=== PATIENT | male | born 1995 | race Caucasian/White ===

== ENCOUNTER 2023-10-03 00:02 | Emergency (ER) | payer MEDICAID, SELFPAY ==
[2023-10-03 00:08] VITALS: BP 144/110; PULSE 126; TEMP 36.7; O2SAT 96; BMI 32.3
[2023-10-03 01:41] LABS: Basophils Absolute Auto 0.1 10^3/uL (0.0-0.1); Basophils Percent Auto 0.6 % (0.2-2.0); Eosinophils Absolute Auto 0.1 10^3/uL (0.0-0.7); Eosinophils Percent Auto 0.8 % (0.9-7.0); Hematocrit 44.8 % (42.0-54.0); Hemoglobin 15.5 g/dL (14.0-18.0); Immature Granulocytes Abs Auto 0.02 10^3/uL (0.00-0.03); Immature Granulocytes Pct Auto 0.2 % (0.0-0.5); Lymphocytes Absolute Auto 1.5 10^3/uL (1.2-3.8); Lymphocytes Percent Auto 16.7 % (20.5-60.0); Mean Corpuscular HGB Conc 34.6 g/dL (29.9-35.2); Mean Corpuscular Hemoglobin 30.8 pg (25.9-34.0); Mean Corpuscular Volume 89.1 fL (80.0-94.0); Mean Platelet Volume 10.4 fL (9.5-13.5); Monocytes Absolute Auto 0.5 10^3/uL (0.3-0.8); Monocytes Percent Auto 5.2 % (1.7-12.0); Neutrophils Absolute Auto 6.8 10^3/uL (1.4-6.5); Neutrophils Percent Auto 76.5 % (43.0-75.0); Platelet Count 261 10^3/uL (150-450); Red Blood Count 5.03 10^6/uL (4.70-6.10); Red Cell Distribution Width 12.2 % (11.0-15.0); White Blood Count 8.9 10^3/uL (4.0-11.0)
[2023-10-03 01:52] LABS: Cannabinoid Screen Urine POSITIVE (NEGATIVE)
[2023-10-03 01:53] LABS: Amphetamine Screen Urine POSITIVE (NEGATIVE); Barbiturates Screen Urine NEGATIVE (NEGATIVE); Benzodiazepines Screen Urine NEGATIVE (NEGATIVE); Buprenorphine Screen Urine NEGATIVE (NEGATIVE); Cocaine Screen Urine NEGATIVE (NEGATIVE); Methadone Screen Urine NEGATIVE (NEGATIVE); Methamphetamines Screen Urine NEGATIVE (NEGATIVE); Opiate Screen Urine NEGATIVE (NEGATIVE); Oxycodone Screen Urine NEGATIVE (NEGATIVE); Phencyclidine Screen Urine NEGATIVE (NEGATIVE); Tricyclic Antidepressant Urine NEGATIVE (NEGATIVE)
[2023-10-03 01:59] LABS: Alanine Aminotransferase 42 U/L (16-63); Albumin Globulin Ratio 1.2; Albumin Level 3.9 g/dL (3.4-5.0); Alkaline Phosphatase 89 U/L (46-116); Anion Gap 9.9; Aspartate Amino Transferase 20 U/L (15-37); BUN Creatinine Ratio 9.2; Bilirubin Total 0.5 mg/dL (0.2-1.0); Calcium 8.8 mg/dL (8.5-10.1); Carbon Dioxide 27.7 mmol/L (21.0-32.0); Chloride 103 mmol/L (98-107); Estimated GFR (African America >60 (>=60); Estimated GFR (Non-African Ame >60 (>=60); Globulin 3.2 g/dL; Glucose 95 mg/dL (74-106); Potassium 3.6 mmol/L (3.5-5.1); Salicylate <2.8 mg/dL (<=19.9); Sodium 137 mmol/L (136-145); Total Protein 7.1 g/dL (6.4-8.2)
[2023-10-03 02:00] LABS: Acetaminophen <2.0 ug/mL (10.0-30.0); Ethanol <3 mg/dL
--- NOTE | 2023-10-03 02:12 | PC.NURSE ---
Pt presents to ER with his sister and a friend for suicidal ideation Pt at first is hesitant to speak with this nurse, pt's sister gives initial story Per pt and his sister at bedside, pt has a history of anxiety, depression, suicide attempts and has been diagnosed with dissociative personality disorder amongst others Pt has a long med list but has not recently been taking his morning meds Pt is transgender, woman to male Pt has been in a relationship for 10 years living in [place] and was just recently broken up with and kicked out Pt has been staying back with his family in [place] Pt gives this nurse a detailed plan of how he plans to kill himself by inhaling helium Pt states he can buy a cannister of helium from [employer] for less than $30 and all he needs is tape and he will pass out but keep inhaling the gas making it a painless way to Pt's sister says he has had multiple suicide attempts in the past by overdose and hanging himself Pt had a traumatic childhood and has been hospitalized for mental health since being young Pt states he spent a lot of time at [facility] In his adult life in [facility] pt has had a psychiatrist and a PCP which he has a close relationship with Pt and his family state that he was told by his doctors in [place] should he ever need hospitalized to come to them as they have all of his health history Pt states he is fearful of having his identity stripped and his clothing, this nurse had security come search the pt for things that could hurt him or others Pt was cooperative with all testing this nurse performed Pt states he has had hallucinations and always has voices in his head just sometimes they are stronger Pt tells Dr. Wilkinson when she comes in that he has just decided he does not want to be alive anymore.
--- NOTE | 2023-10-03 02:37 | PC.NURSE ---
This nurse called and spoke with nurse at [address] She is contacting higher to figure out if his insurance will cover his stay at [facility] and then will call her physician Pt and his family are asleep at this time
[2023-10-03] MEDS: ONDANSETRON 4 MG RAPDIS TABLET SL ×2 (03:01→06:51)
[2023-10-03] MEDS: CLONAZEPAM 0.5 MG TABLET PO (03:01)
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
--- NOTE | 2023-10-03 03:35 | PC.NURSE ---
This nurse spoke with Rochelle from [address] [place] [address] The pt has been accepted to [address] but they will not have a bed until after 8am as he requires a room by himself and people will need moved around This RN stated that they will call us at 8am with a bed number and let us know we can transfer him This nurse called pt's sister and gave her the update as well as pt Pt denies needs at this time and states he would like to attempt to get sleep
--- NOTE | 2023-10-03 04:18 | ECG_ITS ---
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
[2023-10-03 04:52] VITALS: BP 110/86; PULSE 88; O2SAT 98
[2023-10-03] MEDS: LORAZEPAM 0.5 MG TABLET 1 MG PO (06:51)
--- NOTE | 2023-10-03 07:05 | PC.NURSE ---
This nurse discussed with pt that his ride to [address] [place] [address] would be here around 0730 this morning This nurse has already called nurse to nurse report to Rochelle at [address] [place] [address] and called back with an updated ETA this nurse notified pt's sister of his transport as well report given to [facility] and care transferred
== END 2023-10-03 07:30 ==
PROVIDERS: Emergency Provider Emergency Medicine
DX: F60.3 Borderline personality disorder (principal); F32.A Depression, unspecified; R45.851 Suicidal ideations; Z79.899 Other long term (current) drug therapy
CPT/HCPCS: 36415; 80053; 80179; 80307; 80320; 80329; 85025; 93005; 99285; Q0162